=== PATIENT | male | born 1985 | race Caucasian/White ===

== ENCOUNTER 2020-06-01 16:32 | Inpatient (IN) | payer OTHER ==
[~2020-06-01] VITALS: Ht 172.7 cm; Wt 74.6 kg
[2020-06-01 16:40] VITALS: BP 127/77
[2020-06-01 17:16] LABS: BASO % 0.1 % (0.0-1.0); EOS # 0.2 10*3/uL (0.0-0.4); EOS % 2.5 % (1.0-4.0); HEMATOCRIT 37.6 % (42.0-52.0); LYMPH # 1.5 10*3/uL (1.3-4.4); LYMPH % 21.2 % (27.0-41.0); MEAN CELL VOLUME 83.2 fl (80.0-94.0); MEAN CORPUSCULAR HGB CONC 34.8 g/dl (33.0-37.0); MEAN PLATELET VOLUME 9.3 fl (9.6-12.3); MONO # 0.6 10*3/uL (0.1-1.0); MONO % 8.4 % (3.0-9.0); NEUT # 4.7 10*3/uL (2.3-7.9); NEUT % 67.5 % (47.0-73.0); PLATELET COUNT AUTOMATED 251 10*3/uL (130-400); RED BLOOD COUNT 4.52 10*6/uL (4.50-5.90); RED CELL DISTRI WIDTH 12.8 % (0-14.5); WHITE BLOOD COUNT 6.9 10*3/uL (4.8-10.8)
[2020-06-01 17:32] LABS: URINE AMPHETAMINES < 1000 (1000ng/ml); URINE BARBITURATES < 200 (200ng/ml); URINE BENZODIAZEPINES > 200 (200ng/ml); URINE CANNABINOIDS (THC) < 50 (50ng/ml); URINE COCAINE > 300 (300ng/ml); URINE METHADONE < 300 (300ng/ml); URINE OPIATES < 300 (300ng/ml)
[2020-06-01 17:33] LABS: ALBUMIN 3.6 gm/dl (3.1-4.5); ALKALINE PHOSPHATASE 50 U/L (45-117); BUN 14 mg/dl (7-24); CHLORIDE 106 mmol/L (98-107); LIPASE 46 U/L (73-393); POTASSIUM 3.7 mmol/L (3.5-5.1); SGOT/AST 24 IU/L (3-35); SGPT/ALT 25 U/L (12-78); SODIUM 138 mmol/L (136-145); TOTAL PROTEIN 7.6 gm/dL (6.4-8.2)
[2020-06-01 17:34] LABS: ACT PARTIAL THROMBO TIME 26.4 SECONDS (20.0-32.1)
[2020-06-01 17:34] LABS: BACTERIA TRACE; BILIRUBIN 1+ (NEGATIVE); BLOOD NEGATIVE (NEGATIVE); CLARITY CLEAR (CLEAR); COLOR YELLOW (YELLOW); EPITHELIAL CELLS 0-2; GLUCOSE NEGATIVE (NEGATIVE); KETONE NEGATIVE (NEGATIVE); LEUKO ESTERASE NEGATIVE (NEGATIVE); MUCOUS TRACE; NITRITE NEGATIVE (NEGATIVE); UROBILINOGEN 0.2 E.U./dl (0.2-1.0); WBC 0-2 wbc/hpf (0-5)
[2020-06-01 17:40] LABS: URINE PHENCYCLIDINE < 25 (25ng/ml)
[2020-06-01 17:40] LABS: ETHYL ALCOHOL < 3.0 mg/dl (<3); TROPONIN I < 0.015 ng/ml (<0.045)
[2020-06-01 21:04] VITALS: BP 126/77
[2020-06-02] VITALS: BP 120/69
[2020-06-02 08:02] VITALS: BP 118/66
[2020-06-02 08:23] LABS: BASO % 0.2 % (0.0-1.0); EOS # 0.3 10*3/uL (0.0-0.4); HEMATOCRIT 36.2 % (42.0-52.0); LYMPH # 1.3 10*3/uL (1.3-4.4); LYMPH % 20.8 % (27.0-41.0); MEAN CELL VOLUME 82.5 fl (80.0-94.0); MEAN CORPUSCULAR HGB 28.9 pg (27.0-31.0); MEAN CORPUSCULAR HGB CONC 35.1 g/dl (33.0-37.0); MEAN PLATELET VOLUME 9.8 fl (9.6-12.3); MONO # 0.6 10*3/uL (0.1-1.0); MONO % 9.6 % (3.0-9.0); NEUT # 4.2 10*3/uL (2.3-7.9); NEUT % 64.6 % (47.0-73.0); PLATELET COUNT AUTOMATED 217 10*3/uL (130-400); RED BLOOD COUNT 4.39 10*6/uL (4.50-5.90); RED CELL DISTRI WIDTH 12.9 % (0-14.5); WHITE BLOOD COUNT 6.4 10*3/uL (4.8-10.8)
[2020-06-02 08:35] LABS: BUN 15 mg/dl (7-24); CHLORIDE 107 mmol/L (98-107); CREATININE 1.09 mg/dL (0.70-1.30); POTASSIUM 4.2 mmol/L (3.5-5.1); SODIUM 137 mmol/L (136-145)
[2020-06-02 12:00] VITALS: BP 135/71
[2020-06-02 16:00] VITALS: BP 110/53
[2020-06-02 20:00] VITALS: BP 131/66
[2020-06-03] VITALS: BP 105/89
[2020-06-03 08:00] VITALS: BP 116/62
[2020-06-03 12:00] VITALS: BP 118/66
[2020-06-03 16:08] VITALS: BP 128/64
[2020-06-03 20:00] VITALS: BP 128/78
[2020-06-04] VITALS: BP 126/81
[2020-06-04 08:00] VITALS: BP 130/64
== END 2020-06-04 12:58 | disposition left against medical advice (07) | DRG 812 ==
LOC: ED 16:32 → EDHOLD 18:46 → 5E 20:07
PROVIDERS: Emergency Medicine; Internal Medicine; ADMIT Family Medicine
DX: T42.4X1A Poisoning by benzodiazepines, accidental (unintentional), initial encounter (principal); L03.113 Cellulitis of right upper limb; G93.41 Metabolic encephalopathy; D64.9 Anemia, unspecified; E83.41 Hypermagnesemia; K90.0 Celiac disease; R00.0 Tachycardia, unspecified; Z53.29 Procedure and treatment not carried out because of patient's decision for other reasons; Z91.012 Allergy to eggs; Z87.442 Personal history of urinary calculi; Z81.1 Family history of alcohol abuse and dependence; Z80.3 Family history of malignant neoplasm of breast; Z81.8 Family history of other mental and behavioral disorders; T40.5X1A Poisoning by cocaine, accidental (unintentional), initial encounter